=== PATIENT | male | born 1940 | race Caucasian/White ===

== ENCOUNTER 2017-06-09 10:40 | Outpatient (CLI) | payer OTHER, MEDICAID ==
[2017-06-09 11:24] LABS: BASOPHILS % (AUTO) 0.4 % (0.0-2.0); EOSINOPHILS # (AUTO) 0.6 K/uL (0.0-0.4); EOSINOPHILS % (AUTO) 7.9 % (0.0-4.0); HEMOGLOBIN 11.8 g/dL (14.0-18.0); LYMPHOCYTES # (AUTO) 2.2 K/uL (1.0-5.5); LYMPHOCYTES % (AUTO) 27.6 % (20.5-51.5); MEAN CORPUSCULAR HEMOGLOBIN 25 pg (27-31); MEAN CORPUSCULAR HGB CONC 32 % (32-36); MEAN CORPUSCULAR VOLUME 77 fL (79.0-98.0); MONOCYTES # (AUTO) 0.8 K/uL (0.0-1.0); MONOCYTES % (AUTO) 10.2 % (1.7-9.3); NEUTROPHILS # (AUTO) 4.3 K/uL (1.8-7.7); NEUTROPHILS % (AUTO) 53.9 % (40.0-70.0); PLATELET COUNT (AUTO) 281 K/uL (130-430); RED BLOOD CELL COUNT(AUTO) 4.82 MIL/uL (4.2-6.2); RED CELL DISTRIBUTION WIDTH 15.5 % (9.0-15.0); WHITE BLOOD COUNT (AUTO) 7.9 K/uL (4.8-10.8)
[2017-06-09 11:29] LABS: ANION GAP 6 (5-15); CALCIUM 8.8 mg/dL (8.4-11.0); CHLORIDE 103 mmol/L (98-107); CREATININE 1.27 mg/dL (0.55-1.30); GLUCOSE 208 mg/dL (70-99); POTASSIUM 4.5 mmol/L (3.5-5.1); SODIUM SERUM 136 mmol/L (136-145); UREA NITROGEN, BLOOD 24 mg/dL (8-21)
[2017-06-09 11:33] LABS: PROTHROMBIN TIME 9.7 SECS (9.5-12.5)
[2017-06-09 12:21] LABS: BILIRUBIN,URINE NEGATIVE (NEGATIVE); BLOOD, URINE NEGATIVE (NEGATIVE); CLARITY/URINE CLEAR (CLEAR); COLOR,URINE YELLOW (YELLOW); GLUCOSE,URINE NEGATIVE (NEGATIVE); KETONES,URINE NEGATIVE (NEGATIVE); LEUKOCYTE ESTERASE ,URINE NEGATIVE (NEGATIVE); NITRITE, URINE NEGATIVE (NEGATIVE); PH,URINE 5.5 (5.0-8.0); PROTEIN URINE TRACE (NEGATIVE); UROBILINOGEN,URINE 0.2 (0.2-1.0)
== END 2017-06-09 19:21 | disposition home or self-care (01) ==
LOC: SLB 10:40
PROVIDERS: ATTEND Specialist
DX: Z01.812 Encounter for preprocedural laboratory examination (principal); Z01.810 Encounter for preprocedural cardiovascular examination; Z01.818 Encounter for other preprocedural examination; N39.41 Urge incontinence; I70.0 Atherosclerosis of aorta; I45.2 Bifascicular block; R05 Cough
CPT/HCPCS: 36415; 71046-TC; 80048; 81003; 85025; 85610-TC; 85730-TC; 87086; 93005

== ENCOUNTER 2018-12-01 12:08 | Inpatient (IN) | payer OTHER, MEDICAID ==
[~2018-12-01] VITALS: Ht 177.8 cm; Wt 118.9 kg
[~2018-12-01 12:08] MED LIST: ASPI-1153 PO; BENZ-16 PO; CARV12.548 PO; CAT.1 PO; DOCU-144 PO; FURO-150 PO; GABA-531 PO; HYDR-1189 PO; HYDR-4037 PO; INSU500I SQ; LIP10 PO; LISI40TA4 PO; MAGN400T10 PO; METF-510 PO; POTA10TA15 PO; PRO40 PO; TAMS-11 PO
--- NOTE | 2018-12-01 12:45 | NUR ---
Direct admit note Direct admit from the office of DR. Ambriz with a diagnosis of CHF via wheelchair , alert oriented reason for hospitalization i dnt feel good but denies any pain , vitals sign within normal limits , oriented to room , safety/fall precaution initiated verbalized understanding.
[2018-12-01 13:05] VITALS: BP_SYST 129
[2018-12-01] MEDS ORDERED: MOM PO (13:36)
[2018-12-01] MEDS ORDERED: ARIPIPRAZOLE PO (13:36)
[2018-12-01] MEDS ORDERED: TRAMADOL PO (13:36)
[2018-12-01] MEDS ORDERED: FLUTICASONE NS (13:36)
[2018-12-01] MEDS ORDERED: HUMULIN R SUBCUT (13:36)
[2018-12-01] MEDS ORDERED: SUDOGEST PO (13:36)
[2018-12-01] MEDS ORDERED: CEPH-568 PO (13:37)
--- NOTE | 2018-12-01 13:55 | NUR ---
IV PLACEMENT: # 22 gauge angiocath placed to LEFT HAND . Use of asceptic technique. Opsite placed over site. Blood return noted. Flushed with 10 cc of normal saline. No evidence of infiltration noted. Patient tolerated WELL.
[2018-12-01] MEDS ORDERED: FUROSEMIDE 40 MG/4 ML VIAL IVP ONE (14:00)
[2018-12-01 14:13] LABS: HEMATOCRIT 37.2 % (36-54); MONOCYTES # (AUTO) 0.6 K/uL (0.0-1.0); MONOCYTES % (AUTO) 10.5 % (1.7-9.3)
[2018-12-01] MEDS: NORMAL SALINE 5 ML DISP.SYRIN IVF SCH ×2 (14:14→20:46)
[2018-12-01 14:23] LABS: BASOPHILS % (AUTO) 0.2 % (0.0-2.0); EOSINOPHILS # (AUTO) 0.4 K/uL (0.0-0.4); EOSINOPHILS % (AUTO) 6.7 % (0.0-4.0); HEMOGLOBIN 11.3 g/dL (14.0-18.0); LYMPHOCYTES # (AUTO) 1.7 K/uL (1.0-5.5); LYMPHOCYTES % (AUTO) 29.1 % (20.5-51.5); MEAN CORPUSCULAR HEMOGLOBIN 23 pg (27-31); MEAN CORPUSCULAR HGB CONC 31 % (32-36); MEAN CORPUSCULAR VOLUME 77 fL (79.0-98.0); NEUTROPHILS # (AUTO) 3.2 K/uL (1.8-7.7); NEUTROPHILS % (AUTO) 53.5 % (40.0-70.0); PLATELET COUNT (AUTO) 293 K/uL (130-430); RED BLOOD CELL COUNT(AUTO) 4.84 MIL/uL (4.2-6.2); RED CELL DISTRIBUTION WIDTH 16.3 % (9.0-15.0)
[2018-12-01 14:26] LABS: ALANINE AMINOTRANSFERASE 18 U/L (12-78); ALBUMIN 2.9 g/dL (3.4-4.8); ASPARTATE AMINOTRANSFERASE 14 U/L (10-37); CALCIUM 8.9 mg/dL (8.4-11.0); CHLORIDE 104 mmol/L (98-107); CREATININE 1.28 mg/dL (0.55-1.30); GLUCOSE 181 mg/dL (70-99); POTASSIUM 4.4 mmol/L (3.5-5.1); SODIUM SERUM 139 mmol/L (136-145); TOTAL BILIRUBIN 0.2 mg/dL (0.0-1.0); UREA NITROGEN, BLOOD 18 mg/dL (8-21)
[2018-12-01 14:46] LABS: ANION GAP 10 (5-15)
[2018-12-01] MEDS ORDERED: HYDROcodone/ACETAMIN 5-325 MG TAB (NORCO/ VICODIN) PO PRN (15:30)
[2018-12-01] MEDS ORDERED: hydrALAZINE HCL 10 MG TABLET PO PRN (15:30)
[2018-12-01] MEDS ORDERED: BENZONATATE 100 MG CAPSULE (TESSALON) PO PRN (15:30)
[2018-12-01] MEDS ORDERED: MILK OF MAGNESIA 30 ML UDC PO PRN (15:30)
[2018-12-01] MEDS ORDERED: cloNIDine HCL 0.1 MG TABLET PO PRN (15:30)
[2018-12-01] MEDS ORDERED: DOCUSATE SODIUM 250 MG CAPSULE PO PRN (15:45)
[2018-12-01] MEDS ORDERED: traMADol HCL HCL 50 MG TABLET (ULTRAM) PO PRN (16:00)
[2018-12-01] MEDS ORDERED: D5W 1,000 ML IV PRN (16:45)
[2018-12-01] MEDS ORDERED: GLUCOSE 15 GM GEL (in 37.5 GM TUBE) PO PRN (16:45)
[2018-12-01] MEDS ORDERED: DEXTROSE 50%-WATER 50 ML DISP.SYRIN IVP PRN (16:45)
[2018-12-01] MEDS: metFORMIN HCL 500 MG TABLET PO SCH (17:14)
[2018-12-01] MEDS: INSULIN REGULAR, HUMAN 100 UNITS/ML, 10 ML VIAL (humuLIN R) SUBCUT PRN ×2 (17:15→21:05)
[2018-12-01 17:40] VITALS: BP_SYST 132
--- NOTE | 2018-12-01 18:45 | NUR ---
iv patent heplock pt aox3 able to feed self states pain in back and legs 4/10. no prn meds given. no acute distress noted pt monitoring.
--- NOTE | 2018-12-01 19:15 | NUR ---
OPENING NOTE Bedside report received from dayshift nurse. Patient received lying in bed, awake, watching TV, no s/s of acute distress noted. Breathing even and unlabored. HOB raised. IV site patent, no signs of infiltration or infection noted. Patient denies pain at this time. Call light with patient. Bed is locked and at lowest position. Will continue to monitor.
[2018-12-01 20:00] VITALS: BP_SYST 160
[2018-12-01] MEDS: CARVEDILOL 12.5 MG TABLET (COREG) PO SCH (20:44)
[2018-12-01] MEDS: ATORVASTATIN 10 MG TABLET PO SCH (20:44)
[2018-12-01] MEDS: GABAPENTIN 300 MG CAPSULE PO SCH (20:44)
[2018-12-01] MEDS: ENOXAPARIN SODIUM 40 MG/0.4 ML SYRINGE SUBCUT SCH (20:45)
[2018-12-01] MEDS: FLUTICASONE PROPIONATE 50 mCg/SPRAY 16 GM NS SCH (20:45)
[2018-12-01] MEDS: FUROSEMIDE 40 MG/4 ML VIAL IVP SCH (20:45)
[2018-12-01] MEDS ORDERED: PSEUDOEPHEDRINE HCL 30 MG TABLET PO PRN (21:00)
--- NOTE | 2018-12-01 21:00 | NUR ---
ROUNDS Patient in bed, sitting on the edge. No signs of discomfort. Chest rise and fall even bilaterally. Call light with patient. Will continue to monitor.
[2018-12-01] MEDS: ARIPiprazole 2 MG TAB PO SCH (21:07)
[2018-12-01] MEDS ORDERED: ARIPiprazole 5 MG TAB ONE (21:15)
--- NOTE | 2018-12-01 23:00 | NUR ---
ROUNDS Patient in bed sleeping at this time. No s/s of acute distress noted. Breathing even and unlabored. Call light with patient. Will continue to monitor.
[2018-12-02 00:32] VITALS: BP_SYST 134
--- NOTE | 2018-12-02 01:00 | NUR ---
ROUNDS Patient asleep. No signs of discomfort noted. Chest rise and fall even bilaterally. Call light with patient.
--- NOTE | 2018-12-02 03:00 | NUR ---
INCONTINENT Patient woke up and he was wet, voided. New gown, clean and dry sheets replaced by RN. All needs met. Call light with patient. Will continue to monitor.
--- NOTE | 2018-12-02 05:00 | NUR ---
ROUNDS Patient in bed asleep. No signs of discomfort noted. Chest rise and fall even bilaterally. Call light with patient. Will continue to monitor.
[2018-12-02] MEDS: INSULIN REGULAR, HUMAN 100 UNITS/ML, 10 ML VIAL (humuLIN R) SUBCUT PRN ×4 (06:08→20:31)
[2018-12-02] MEDS: NORMAL SALINE 5 ML DISP.SYRIN IVF SCH ×3 (06:08→22:00)
--- NOTE | 2018-12-02 06:44 | NUR ---
CLOSING NOTES Patient in bed sleeping at this time. No s/s of acute distress noted. Breathing even and unlabored. IV site patent, no signs of infiltration or infection noted. Skin warm and dry to touch, no s/s of hypoglycemia noted. All needs met throughout shift. Fall and safety precautions maintained throughout shift. Will continue to monitor until patient care is endorsed to oncoming dayshift nurse.
--- NOTE | 2018-12-02 07:45 | NUR ---
HOB raised. IV site patent, no signs of infiltration or infection noted. Instructed patient southeast regional sales manager light, which is with patient, with return demo. Bed is locked and at lowest position. Will continue to monitor.
[2018-12-02 08:00] VITALS: BP_SYST 143
[2018-12-02] MEDS: GABAPENTIN 300 MG CAPSULE PO SCH ×2 (08:58→20:30)
[2018-12-02] MEDS: PANTOPRAZOLE SODIUM 40 MG TAB PO SCH (08:59)
[2018-12-02] MEDS: MAGNESIUM OXIDE 400 MG TABLET PO SCH (08:59)
[2018-12-02] MEDS: TAMSULOSIN HCL 0.4 MG CAP PO SCH (08:59)
[2018-12-02] MEDS: metFORMIN HCL 500 MG TABLET PO SCH ×2 (08:59→17:55)
[2018-12-02] MEDS: CARVEDILOL 12.5 MG TABLET (COREG) PO SCH ×2 (08:59→20:30)
[2018-12-02] MEDS: POTASSIUM CHLORIDE 10 MEQ TAB.PRT.SR PO SCH (08:59)
[2018-12-02] MEDS: ASPIRIN 81 MG TABLET(ECOTRIN) PO SCH (08:59)
[2018-12-02] MEDS: LISINOPRIL 20 MG TABLET PO SCH (09:00)
[2018-12-02] MEDS: FUROSEMIDE 40 MG/4 ML VIAL IVP SCH ×2 (09:00→20:29)
[2018-12-02] MEDS: FLUTICASONE PROPIONATE 50 mCg/SPRAY 16 GM NS SCH ×2 (10:15→20:32)
--- NOTE | 2018-12-02 10:21 | NUR ---
Nutrition Update Jake Scale 17 noted. Pt admitted for CHF. Diet: [facility] BMI: 39.7 kg/m2 RD to follow per nutrition care standards.
--- NOTE | 2018-12-02 11:30 | NUR ---
PATIENT IS AT REST, NO SIGNS OF DISTRESS NOTED.
--- NOTE | 2018-12-02 11:40 | NUR ---
BLOOD SUGAR 273, RI WILL BE GIVEN PER SLIDING SCALE.
[2018-12-02 12:00] VITALS: BP_SYST 153
--- NOTE | 2018-12-02 13:00 | NUR ---
PATIENT FINISHES LUNCH WITHOUT DISTRESS.
--- NOTE | 2018-12-02 15:00 | NUR ---
PATIENT IS WATCHING TV, NO SIGNS OF DISTRESS NOTED.
[2018-12-02 16:00] VITALS: BP_SYST 139
--- NOTE | 2018-12-02 17:00 | NUR ---
PATIENT BLOOD SUGAR 238. 4 UNITS OF RI WILL BE GIVEN.
--- NOTE | 2018-12-02 18:58 | NUR ---
PATIENT FINISHES DINNER WITHOUT DISTRESS.
--- NOTE | 2018-12-02 19:05 | NUR ---
OPENING NOTE Bedside report received from dayshift nurse. Patient received sitting up in bed, no s/s of acute distress noted. Breathing even and unlabored. Patient denies any pain or discomfort at this time. Call light with patient. Bed is locked and at lowest position. Will continue to monitor.
[2018-12-02 20:00] VITALS: BP_SYST 139
[2018-12-02] MEDS: ATORVASTATIN 10 MG TABLET PO SCH (20:29)
[2018-12-02] MEDS: ARIPiprazole 2 MG TAB PO SCH (20:30)
[2018-12-02] MEDS: ENOXAPARIN SODIUM 40 MG/0.4 ML SYRINGE SUBCUT SCH (20:30)
--- NOTE | 2018-12-02 21:00 | NUR ---
ROUNDS Patient in bed resting, no signs of discomfort noted. Patient denies pain. Chest rise and fall even bilaterally. Call light with patient. Will continue to monitor.
--- NOTE | 2018-12-02 23:00 | NUR ---
ROUNDS Patient sleeping at this time. No s/s of acute distress noted. Breathing even and unlabored. Call light with patient. Will continue to monitor.
[2018-12-03 00:36] VITALS: BP_SYST 149
--- NOTE | 2018-12-03 01:00 | NUR ---
ROUNDS Patient in bed asleep. No signs of discomfort noted. Chest rise and fall even bilaterally. Call light with patient. Will continue to monitor.
--- NOTE | 2018-12-03 03:00 | NUR ---
ROUNDS Patient sleeping comfortably. No s/s of acute distress noted. Breathing even and unlabored. Call light with patient. Will continue to monitor.
--- NOTE | 2018-12-03 05:00 | NUR ---
SKINCARE Skin care done at this time by SUPERINTENDENT TERMINAL and RN. Gown, sheets, and blankets changed at this time. Patient in bed, tolerated activity well. No signs of discomfort noted. Chest rise and fall even bilaterally. All needs met. Call light with patient. Will continue to monitor.
[2018-12-03] MEDS: NORMAL SALINE 5 ML DISP.SYRIN IVF SCH ×3 (06:00→20:26)
[2018-12-03] MEDS: INSULIN REGULAR, HUMAN 100 UNITS/ML, 10 ML VIAL (humuLIN R) SUBCUT PRN ×4 (06:01→20:25)
--- NOTE | 2018-12-03 07:35 | NUR ---
INITIAL NOTE RECEIVED PT IN BED, NO S/S OF DISTRESS OR SOB NOTED, PT HAS NO C/O PAIN AT THIS TIME, PT IN STABLE CONDITION, PT AAOX4, VERBAL. PT HAS AN IV CATHETER PATENT, SALINE LOCK, NO SIGNS OF INFECTION OR INFILTRATION NOTED. FALL, SAFETY AND ASPIRATION PRECAUTIONS IN PLACE. BED AT LOWEST POSITION, CALL LIGHT WITHIN REACH, WILL CONTINUE TO MONITOR PT FOR ANY CHANGES.
[2018-12-03 08:40] VITALS: BP_SYST 144
[2018-12-03] MEDS: ASPIRIN 81 MG TABLET(ECOTRIN) PO SCH (08:48)
[2018-12-03] MEDS: MAGNESIUM OXIDE 400 MG TABLET PO SCH (08:48)
[2018-12-03] MEDS: TAMSULOSIN HCL 0.4 MG CAP PO SCH (08:48)
[2018-12-03] MEDS: PANTOPRAZOLE SODIUM 40 MG TAB PO SCH (08:48)
[2018-12-03] MEDS: metFORMIN HCL 500 MG TABLET PO SCH ×2 (08:48→17:13)
[2018-12-03] MEDS: POTASSIUM CHLORIDE 10 MEQ TAB.PRT.SR PO SCH (08:48)
[2018-12-03] MEDS: GABAPENTIN 300 MG CAPSULE PO SCH ×2 (08:48→20:24)
[2018-12-03] MEDS: FUROSEMIDE 40 MG/4 ML VIAL IVP SCH ×2 (08:49→20:23)
[2018-12-03] MEDS: LISINOPRIL 20 MG TABLET PO SCH (08:49)
[2018-12-03] MEDS: CARVEDILOL 12.5 MG TABLET (COREG) PO SCH ×2 (08:53→20:24)
[2018-12-03] MEDS: FLUTICASONE PROPIONATE 50 mCg/SPRAY 16 GM NS SCH ×2 (09:01→20:22)
--- NOTE | 2018-12-03 10:15 | NUR ---
ROUNDS PT SITTING UP IN BED, NO S/S OF DISTRESS OR SOB NOTED, PT HAS NO C/O PAIN, PT IN STABLE CONDITION, WILL CONTINUE TO MONITOR PT FOR ANY CHANGES.
[2018-12-03 11:48] VITALS: BP_SYST 120
--- NOTE | 2018-12-03 12:51 | NUR ---
ROUNDS PT SITTING UP IN BED EATING LUNCH, NO S/S OF DISTRESS OR SOB NOTED, PT HAS NO C/O PAIN, PT IN STABLE CONDITION, WILL CONTINUE TO MONITOR PT FOR ANY CHANGES.
--- NOTE | 2018-12-03 14:55 | NUR ---
ROUNDS PT IN BED, NO S/S DISTRESS OR SOB NOTED, PT HAS NO C/O PAIN AT THIS TIME, PT IN STABLE CONDITION, PT WATCHING TV, WILL CONTINUE TO MONITOR PT FOR ANY CHANGES.
[2018-12-03 16:20] VITALS: BP_SYST 143
--- NOTE | 2018-12-03 19:10 | NUR ---
OPENING NOTES Bedside report received from dayshift nurse. Patient received sitting at edge of bed. No s/s of acute distress noted. Patient denies any pain. Breathing even and unlabored. IV site patent, no signs of infiltration or infection noted. Call light with patient. Bed is locked and at lowest position. Will continue to monitor.
[2018-12-03 20:00] VITALS: BP_SYST 138
[2018-12-03] MEDS: ARIPiprazole 2 MG TAB PO SCH (20:23)
[2018-12-03] MEDS: ATORVASTATIN 10 MG TABLET PO SCH (20:24)
[2018-12-03] MEDS: ENOXAPARIN SODIUM 40 MG/0.4 ML SYRINGE SUBCUT SCH (20:24)
--- NOTE | 2018-12-03 21:00 | NUR ---
ROUNDS Patient in bed resting. No signs of discomfort noted. Chest rise and fall even bilaterally. Call light with patient. Will continue to monitor.
--- NOTE | 2018-12-03 21:30 | NUR ---
CTSCAN Patient brought back to unit from CT scan. Protonix drip infusing at this time, IV site patent. No signs of discomfort, chest rise and fall even bilaterally. Call light with patient. Will continue to monitor. Addendum: 12/03/18 at 2259 by Hai Valencia RN INPUT WRONG PATIENT
--- NOTE | 2018-12-03 23:00 | NUR ---
INCONTINENT CARE Patient voided on the bed. Incontinent care done by COMMUNICATIONS COORDINATOR and RN. Patient tolerated well. All needs met. Call light with patient.
[2018-12-04 00:41] VITALS: BP_SYST 144
--- NOTE | 2018-12-04 01:00 | NUR ---
ROUNDS Patient in bed sleeping. No signs of discomfort noted. Chest rise and fall even bilaterally. Call light with patient. Will continue to monitor.
--- NOTE | 2018-12-04 03:00 | NUR ---
ROUNDS Patient in bed sleeping. No s/s of acute distress noted. Breathing even and unlabored. Call light with patient. Will continue monitor.
--- NOTE | 2018-12-04 05:00 | NUR ---
ROUNDS Patient sleeping at this time. No signs of discomfort noted. Chest rise and fall even bilaterally. Call light with patient. Will continue to monitor.
[2018-12-04] MEDS: NORMAL SALINE 5 ML DISP.SYRIN IVF SCH ×3 (06:03→22:33)
[2018-12-04] MEDS: INSULIN REGULAR, HUMAN 100 UNITS/ML, 10 ML VIAL (humuLIN R) SUBCUT PRN ×4 (06:04→22:38)
--- NOTE | 2018-12-04 06:25 | NUR ---
CLOSING NOTES Patient in bed asleep at this time. No s/s of acute distress noted. Breathing even and unlabored. IV site patent, no signs of infiltration or infection noted. Skin warm and dry to touch, no s/s of hypoglycemia. All needs met throughout shift. Fall and safety precautions maintained throughout shift. Will continue to monitor until patient care is endorsed to oncoming dayshift nurse.
--- NOTE | 2018-12-04 07:25 | NUR ---
Opening Note: Patient in bed asleep. Patient shows no signs of pain or discomfort. Breathing is even and unlabored with no distress noted. IV patent and intact. Safety precautions in place; bed in lowest position, wheels locked, side rails x3, bed alarm activated and call light within reach. Will continue to monitor.
[2018-12-04 08:06] VITALS: BP_SYST 133
[2018-12-04] MEDS: ASPIRIN 81 MG TABLET(ECOTRIN) PO SCH (08:43)
[2018-12-04] MEDS: TAMSULOSIN HCL 0.4 MG CAP PO SCH (08:43)
[2018-12-04] MEDS: metFORMIN HCL 500 MG TABLET PO SCH ×2 (08:43→17:16)
[2018-12-04] MEDS: MAGNESIUM OXIDE 400 MG TABLET PO SCH (08:43)
[2018-12-04] MEDS: GABAPENTIN 300 MG CAPSULE PO SCH ×2 (08:43→22:28)
[2018-12-04] MEDS: PANTOPRAZOLE SODIUM 40 MG TAB PO SCH (08:43)
[2018-12-04] MEDS: POTASSIUM CHLORIDE 10 MEQ TAB.PRT.SR PO SCH (08:43)
[2018-12-04] MEDS: FUROSEMIDE 40 MG/4 ML VIAL IVP SCH ×3 (08:44→22:28)
[2018-12-04] MEDS: CARVEDILOL 12.5 MG TABLET (COREG) PO SCH ×2 (08:44→22:29)
[2018-12-04] MEDS: LISINOPRIL 20 MG TABLET PO SCH (08:44)
[2018-12-04] MEDS: FLUTICASONE PROPIONATE 50 mCg/SPRAY 16 GM NS SCH ×2 (08:45→22:28)
--- NOTE | 2018-12-04 10:09 | NUR ---
Rounds: Patient in bed resting, no distress noted. Will continue to monitor.
--- NOTE | 2018-12-04 11:26 | NUR ---
Discharge Planning: [facility] faxed pt referral to [facility] (f [phone] p [phone]) Pat came to evaluate accepting patient. Requesting PT notes, PT is aware. Patient accepted to Room 1101A. Addendum: 12/04/18 at 1557 by Juliann Oquendo DP [facility] (f [phone] p [phone]) Rm 1101A, [facility] ([phone]) 7:30pm P/U Nurse made aware, patient packet taken to nurse station.
--- NOTE | 2018-12-04 11:31 | NUR ---
Accucheck: Blood sugar 373, covered with 10 units insulin per sliding scale, see eMAR.
--- NOTE | 2018-12-04 12:01 | NUR ---
Rounds: Patient in bed resting. Patient shows no signs of pain or discomfort. Breathing is even and unlabored with no distress noted. Morning medications tolerated well. Safety precautions in place; bed in lowest position, wheels locked, side rails x3, bed alarm activated and call light within reach. No needs at this time. Will continue to monitor.
[2018-12-04 12:35] VITALS: BP_SYST 127
--- NOTE | 2018-12-04 14:01 | NUR ---
Rounds: Patient in bed resting, no distress noted. Will continue to monitor.
--- NOTE | 2018-12-04 15:55 | NUR ---
Rounds: Patient in bed resting. Patient shows no signs of pain or discomfort. Breathing is even and unlabored with no distress noted. Safety precautions in place; bed in lowest position, wheels locked, side rails x3, bed alarm activated and call light within reach. No needs at this time. Will continue to monitor.
--- NOTE | 2018-12-04 16:14 | NUR ---
DC PLANNING: CM CONTACTED PATIENT'S DAUGHTER (ASHLEY) AND INFORMED HER OF THE DISCHARGE TO [facility] TODAY AT 7:30PM. PATIENT'S DAUGHTER AGREED TO THE DISCHARGE.
[2018-12-04 16:39] VITALS: BP_SYST 123
--- NOTE | 2018-12-04 17:20 | NUR ---
Accucheck: Blood sugar 326, covered with 8 units insulin per sliding scale, see eMAR.
--- NOTE | 2018-12-04 18:13 | NUR ---
Called Family: Called daughter Lucie and left a voicemail with a callback number.
--- NOTE | 2018-12-04 18:20 | NUR ---
Called Report: Called [facility] and gave report to Angie, all questions answered and call back number given.
[2018-12-04 18:23] VITALS: BP_SYST 123
--- NOTE | 2018-12-04 19:07 | NUR ---
Closing Note: Patient in bed resting. Patient shows no signs of pain or discomfort. Breathing is even and unlabored with no distress noted. IV patent and intact. Safety precautions in place; bed in lowest position, wheels locked, side rails x3, bed alarm activated and call light within reach. All needs met. Will endorse plan of care to NOC, nurse.
--- NOTE | 2018-12-04 19:25 | NUR ---
OPENING NOTE RECEIVED CARE OF PT. PT IS AAOX4, NO S/S OF ACUTE DISTRESS, BREATHING IS UNLABORED TO ROOM AIR. IV TO LEFT HAND IS SALINE LOCKED. POC EXPLAINED TO PT, PT VERBALIZED UNDERSTANDING. SAFETY PRECAUTIONS ARE IN PLACE: BED IS LOCKED IN LOWEST POSITION, SIDE RAILS UP X2, CALL LIGHT WITH PT, BED ALARM ON.
[2018-12-04 20:00] VITALS: BP_SYST 130
--- NOTE | 2018-12-04 22:15 | NUR ---
Kelvin from [facility] called stating that it is now too late to accept the patient because pharmacy is not available and pharmacy is needed for the admission process. Informed Kelvin that we can give the patient his night meds before he goes. Kelvin said patient can be transferred in the morning and bed will still be held. Informed him that I will be calling Dr. Ambriz to inform him.
[2018-12-04] MEDS: ARIPiprazole 2 MG TAB PO SCH (22:27)
[2018-12-04] MEDS: ATORVASTATIN 10 MG TABLET PO SCH (22:28)
--- NOTE | 2018-12-04 22:29 | NUR ---
SCHEDULED MEDICATION PASS DUE MEDS GIVEN. NO S/S OF DISTRESS. WILL MONITOR.
--- NOTE | 2018-12-04 22:30 | NUR ---
Spoke to Dr. Ambriz. Informed him that [facility] is refusing to accept the patient tonight because it is too late. Informed Dr. Ambriz that I spoke to Kelvin. Dr. Ambriz will call [facility].
[2018-12-04] MEDS: ENOXAPARIN SODIUM 40 MG/0.4 ML SYRINGE SUBCUT SCH (22:32)
--- NOTE | 2018-12-04 22:38 | NUR ---
REFUSED LASIX PT REFUSED LASIX STATING "IT MAKES ME PEE TOO MUCH". PT EDUCATED REGARDING MEDICATION INDICATION AND ACTION. PT CONTINUED TO REFUSE. MEDICATION WASTED. WILL MONITOR.
--- NOTE | 2018-12-04 22:39 | NUR ---
Dr. Ambriz called back. He said that the latest the patient can arrive at [facility] is at midnight. If patient is not picked up by 23:00, cancel transfer, enter new discharge order for tomorrow and set up transfer first thing in the morning for 07:00am. Omar Peters made aware of situation. Will notify primary RN.
--- NOTE | 2018-12-04 23:00 | NUR ---
DISCHARGED PT DISCHARGED WITH [facility]ULANCE [facility]IST[facility] TO [facility]. DISCHARGE INSTRUCTIONS GIVEN TO PT, PT VERBALIZED UNDERSTANDING. IV TO LEFT HAND IS SALINE LOCKED AND LEFT IN PLACE. PT'S VITAL SIGNS ARE STABLE. PT DENIES PAIN OR DISCOMFORT. NO S/S OF ACUTE DISTRESS. PT TAKEN TO AMBULANCE VIA GURNEY.
== END 2018-12-04 23:00 | DRG 551 ==
LOC: STU 12:28
PROVIDERS: ADMIT Family Medicine; ATTEND Family Medicine
DX: M54.16 Radiculopathy, lumbar region (principal); I50.33 Acute on chronic diastolic (congestive) heart failure; I11.0 Hypertensive heart disease with heart failure; R29.6 Repeated falls; I10 Essential (primary) hypertension; E11.40 Type 2 diabetes mellitus with diabetic neuropathy, unspecified
CPT/HCPCS: 36415; 71045; 80053; 82962; 83880; 85025; G0378; J1650; J1815; J1940

== ENCOUNTER 2020-08-24 01:21 | Inpatient (IN) | payer OTHER, MEDICAID, SELFPAY ==
[2020-08-24] VITALS (15 sets, daily range): BP systolic 95–160
[~2020-08-24] VITALS: Ht 177.8 cm; Wt 122.5 kg
[~2020-08-24 01:21] MED LIST changes: +ARIPIPRAZOLE PO; -ASPI-1153 PO; +ASPI-1393 PO; +CEPH-568 PO; +FLUTICASONE NS; +HUMULIN R SUBCUT; -HYDR-1189 PO; +HYDR-3919 PO; +LISI40TA13 PO; -LISI40TA4 PO; -METF-510 PO; +METF-518 PO; +MOM PO; +SUDOGEST PO; +TRAMADOL PO
[2020-08-24] MEDS ORDERED: DEXTROSE 50% JECT 50 ML DISP.SYRIN ONE (01:29)
[2020-08-24] MEDS ORDERED: METOCLOPRAMIDE HCL 10 MG/2 ML VIAL ONE (01:39)
[2020-08-24] MEDS ORDERED: METOCLOPRAMIDE HCL 10 MG/2 ML VIAL IVP ONE (01:45)
[2020-08-24] MEDS ORDERED: DEXTROSE 50% JECT 50 ML DISP.SYRIN IVP ONE (01:45)
[2020-08-24] MEDS ORDERED: NACL 0.9% 1,000 ML IV ONE (01:45)
[2020-08-24 01:58] LABS: ANION GAP 9 (5-15); CALCIUM 8.1 mg/dL (8.4-11.0); CHLORIDE 107 mmol/L (98-107); CREATININE 1.41 mg/dL (0.55-1.30); POTASSIUM 3.6 mmol/L (3.5-5.1); SODIUM SERUM 142 mmol/L (136-145); UREA NITROGEN, BLOOD 28 mg/dL (8-21)
[2020-08-24 01:59] LABS: BASOPHILS # (AUTO) 0.1 K/uL (0.0-0.2); BASOPHILS % (AUTO) 0.7 % (0.0-2.0); EOSINOPHILS # (AUTO) 0.2 K/uL (0.0-0.4); EOSINOPHILS % (AUTO) 1.5 % (0.0-4.0); HEMATOCRIT 37.8 % (36-54); HEMOGLOBIN 11.9 g/dL (14.0-18.0); LYMPHOCYTES # (AUTO) 3.4 K/uL (1.0-5.5); LYMPHOCYTES % (AUTO) 32.4 % (20.5-51.5); MEAN CORPUSCULAR HEMOGLOBIN 25 pg (27-31); MEAN CORPUSCULAR HGB CONC 32 % (32-36); MEAN CORPUSCULAR VOLUME 79 fL (79.0-98.0); MONOCYTES # (AUTO) 1.5 K/uL (0.0-1.0); MONOCYTES % (AUTO) 14.7 % (1.7-9.3); NEUTROPHILS # (AUTO) 5.3 K/uL (1.8-7.7); NEUTROPHILS % (AUTO) 50.7 % (40.0-70.0); PLATELET COUNT (AUTO) 262 K/uL (130-430); RED BLOOD CELL COUNT(AUTO) 4.77 MIL/uL (4.2-6.2); RED CELL DISTRIBUTION WIDTH 15.9 % (9.0-15.0); WHITE BLOOD COUNT (AUTO) 10.5 K/uL (4.8-10.8)
[2020-08-24 02:05] LABS: ALANINE AMINOTRANSFERASE 29 U/L (12-78); ALBUMIN 2.8 g/dL (3.4-4.8); ASPARTATE AMINOTRANSFERASE 24 U/L (10-37); TOTAL BILIRUBIN 0.2 mg/dL (0.0-1.0)
[2020-08-24 02:09] LABS: GLUCOSE 35 mg/dL (70-99)
[2020-08-24] MEDS ORDERED: NS 500 ML IV ONE (02:15)
[2020-08-24] MEDS ORDERED: PSEU1TAB PO (02:34)
[2020-08-24] MEDS ORDERED: ARIP2TAB3 PO (02:34)
[2020-08-24] MEDS ORDERED: NALO4SPR NS (02:34)
[2020-08-24] MEDS ORDERED: MYCOLOG15O TP (02:34)
[2020-08-24] MEDS ORDERED: FERROUS SULFATE PO (02:34)
[2020-08-24] MEDS ORDERED: CYM30 PO (02:34)
[2020-08-24] MEDS ORDERED: CYAN100010 PO (02:34)
[2020-08-24] MEDS ORDERED: MICO71PO TP (02:34)
[2020-08-24 02:47] LABS: BILIRUBIN,URINE NEGATIVE (NEGATIVE); BLOOD, URINE 1+ (NEGATIVE); COLOR,URINE YELLOW (YELLOW); GLUCOSE,URINE TRACE (NEGATIVE); KETONES,URINE NEGATIVE (NEGATIVE); LEUKOCYTE ESTERASE ,URINE NEGATIVE (NEGATIVE); NITRITE, URINE NEGATIVE (NEGATIVE); PH,URINE 6.5 (5.0-8.0); PROTEIN URINE 3+ (NEGATIVE)
[2020-08-24 02:54] LABS: CLARITY/URINE SLIGHTLY CLOUDY (CLEAR)
[2020-08-24 02:59] LABS: BACTERIA,URINE FEW /HPF (None Seen); WBC,URINE 0-3 /HPF (0-3)
[2020-08-24] MEDS ORDERED: ONDANSETRON HCL 4 MG/2 ML VIAL IVP ONE (04:30)
[2020-08-24] MEDS ORDERED: MORPHINE 4 MG INJ. 4 MG/ML VIAL IVP ONE (04:30)
[2020-08-24] MEDS ORDERED: D10W 1,000 ML IV SCH ×3 (05:00→05:45)
[2020-08-24] MEDS ORDERED: HYDROcodone/ACETAMIN 5-325 MG TAB (NORCO/ VICODIN) ONE (07:45)
[2020-08-24] MEDS: HYDROcodone/ACETAMIN 5-325 MG TAB (NORCO/ VICODIN) PO PRN (07:45)
[2020-08-24] MEDS: GABAPENTIN 300 MG CAPSULE PO SCH ×4 (07:45→20:33)
[2020-08-24] MEDS ORDERED: GABAPENTIN 300 MG CAPSULE ONE (07:46)
[2020-08-24] MEDS ORDERED: HYDROmorphone 1 INJ. 1 MG/ML CARTRIDGE ONE (09:26)
[2020-08-24] MEDS ORDERED: cloNIDine HCL 0.1 MG TABLET PO PRN (09:30)
[2020-08-24] MEDS ORDERED: POTASSIUM CHLORIDE 10 MEQ TAB.PRT.SR PO ONE (09:30)
[2020-08-24] MEDS ORDERED: NALOXONE HCL 0.4 MG/ML AMP (NARCAN) IVP PRN (09:30)
[2020-08-24] MEDS: NYSTATIN/TRIAMCIN 15 GM TOPICAL OINTMENT TP SCH ×2 (09:30→20:47)
[2020-08-24] MEDS ORDERED: HYDROcodone/ACETAMIN 5-325 MG TAB (NORCO/ VICODIN) PO PRN (09:30)
[2020-08-24] MEDS ORDERED: MAGNESIUM OXIDE 400 MG TABLET PO ONE (09:30)
[2020-08-24] MEDS ORDERED: MILK OF MAGNESIA 30 ML UDC PO PRN (09:30)
[2020-08-24] MEDS ORDERED: PANTOPRAZOLE SODIUM 40 MG TAB PO ONE (09:30)
[2020-08-24] MEDS ORDERED: TAMSULOSIN HCL 0.4 MG CAP PO ONE (09:30)
[2020-08-24] MEDS ORDERED: DOCUSATE SODIUM 100 MG CAPSULE PO PRN (09:30)
[2020-08-24] MEDS ORDERED: GABAPENTIN 300 MG CAPSULE PO SCH (09:30)
[2020-08-24] MEDS ORDERED: BENZONATATE 100 MG CAPSULE (TESSALON) PO PRN (09:30)
[2020-08-24] MEDS ORDERED: FUROSEMIDE 20 MG TABLET PO ONE (10:00)
[2020-08-24] MEDS ORDERED: CARVEDILOL 12.5 MG TABLET (COREG) PO ONE (10:00)
[2020-08-24] MEDS ORDERED: DULoxetine HCL 30 MG CAPSULE.DR (CYMBALTA) PO ONE (10:00)
[2020-08-24] MEDS ORDERED: ASPIRIN 81 MG TABLET(ECOTRIN) PO ONE (10:00)
[2020-08-24] MEDS: CYANOCOBALAMIN 1000 mCg TABLET PO SCH (10:37)
[2020-08-24] MEDS: ARIPiprazole 2 MG TAB PO SCH (10:37)
[2020-08-24] MEDS: HYDROmorphone 1 INJ. 1 MG/ML CARTRIDGE IVP PRN (15:43)
[2020-08-24] MEDS: INSULIN REGULAR, HUMAN 100 UNITS/ML, 10 ML VIAL (humuLIN R) SUBCUT PRN ×3 (15:44→20:56)
[2020-08-24] MEDS: 0.45% NACL 1,000 ML IV SCH (17:47)
[2020-08-24] MEDS: DULoxetine HCL 30 MG CAPSULE.DR (CYMBALTA) PO SCH (20:33)
[2020-08-24] MEDS: CARVEDILOL 12.5 MG TABLET (COREG) PO SCH (20:33)
[2020-08-24] MEDS: ATORVASTATIN 10 MG TABLET PO SCH (20:34)
[2020-08-24] MEDS: ENOXAPARIN SODIUM 40 MG/0.4 ML SYRINGE SUBCUT SCH (20:36)
[2020-08-24] MEDS: CLOTRIMAZOLE 1% TOPICAL CREAM 15 GM TP SCH (20:47)
[2020-08-25] MEDS: HYDROcodone/ACETAMIN 5-325 MG TAB (NORCO/ VICODIN) PO PRN (02:25)
[2020-08-25] MEDS: INSULIN REGULAR, HUMAN 100 UNITS/ML, 10 ML VIAL (humuLIN R) SUBCUT PRN ×4 (06:19→20:43)
[2020-08-25 06:58] LABS: BASOPHILS % (AUTO) 0.6 % (0.0-2.0); EOSINOPHILS # (AUTO) 0.4 K/uL (0.0-0.4); EOSINOPHILS % (AUTO) 6.2 % (0.0-4.0); HEMATOCRIT 38.3 % (36-54); LYMPHOCYTES % (AUTO) 29.4 % (20.5-51.5); MEAN CORPUSCULAR HEMOGLOBIN 25 pg (27-31); MEAN CORPUSCULAR HGB CONC 31 % (32-36); MEAN CORPUSCULAR VOLUME 80 fL (79.0-98.0); MONOCYTES % (AUTO) 14.5 % (1.7-9.3); NEUTROPHILS # (AUTO) 3.3 K/uL (1.8-7.7); NEUTROPHILS % (AUTO) 49.3 % (40.0-70.0); PLATELET COUNT (AUTO) 229 K/uL (130-430); RED BLOOD CELL COUNT(AUTO) 4.81 MIL/uL (4.2-6.2); RED CELL DISTRIBUTION WIDTH 16.1 % (9.0-15.0); WHITE BLOOD COUNT (AUTO) 6.7 K/uL (4.8-10.8)
[2020-08-25 07:37] LABS: ANION GAP 9 (5-15); CALCIUM 7.8 mg/dL (8.4-11.0); CHLORIDE 100 mmol/L (98-107); CREATININE 1.88 mg/dL (0.55-1.30); GLUCOSE 283 mg/dL (70-99); POTASSIUM 4.7 mmol/L (3.5-5.1); SODIUM SERUM 134 mmol/L (136-145); UREA NITROGEN, BLOOD 31 mg/dL (8-21); URIC ACID 6.8 mg/dL (2.4-7.0)
[2020-08-25] MEDS: HYDROmorphone 1 INJ. 1 MG/ML CARTRIDGE IVP PRN (07:45)
[2020-08-25 08:00] VITALS: BP_SYST 119
[2020-08-25] MEDS ORDERED: FUROSEMIDE 20 MG TABLET PO SCH (09:00)
[2020-08-25] MEDS: POTASSIUM CHLORIDE 10 MEQ TAB.PRT.SR PO SCH (09:16)
[2020-08-25] MEDS: ASPIRIN 81 MG TABLET(ECOTRIN) PO SCH (09:16)
[2020-08-25] MEDS: DULoxetine HCL 30 MG CAPSULE.DR (CYMBALTA) PO SCH ×2 (09:16→20:37)
[2020-08-25] MEDS: TAMSULOSIN HCL 0.4 MG CAP PO SCH (09:17)
[2020-08-25] MEDS: FERROUS SULFATE 325 MG TABLET.DR PO SCH (09:17)
[2020-08-25] MEDS: GABAPENTIN 300 MG CAPSULE PO SCH ×3 (09:17→20:37)
[2020-08-25] MEDS: CARVEDILOL 12.5 MG TABLET (COREG) PO SCH ×2 (09:18→20:40)
[2020-08-25] MEDS: MAGNESIUM OXIDE 400 MG TABLET PO SCH (09:20)
[2020-08-25] MEDS: CYANOCOBALAMIN 1000 mCg TABLET PO SCH (09:21)
[2020-08-25] MEDS: BALSAM PERU/CASTOR OIL 60 GM OINT...G. TP SCH (09:21)
[2020-08-25] MEDS: NYSTATIN/TRIAMCIN 15 GM TOPICAL OINTMENT TP SCH ×2 (09:23→20:39)
[2020-08-25] MEDS: PANTOPRAZOLE SODIUM 40 MG TAB PO SCH (09:33)
[2020-08-25] MEDS: CLOTRIMAZOLE 1% TOPICAL CREAM 15 GM TP SCH ×2 (09:33→20:38)
[2020-08-25] MEDS: ARIPiprazole 2 MG TAB PO SCH (09:35)
[2020-08-25 11:26] VITALS: BP_SYST 125
[2020-08-25] MEDS: 0.45% NACL 1,000 ML IV SCH ×2 (12:10→20:25)
[2020-08-25] MEDS ORDERED: MILK OF MAGNESIA 30 ML UDC PO ONE (13:00)
[2020-08-25 15:23] VITALS: BP_SYST 151
[2020-08-25 20:00] VITALS: BP_SYST 124
[2020-08-25] MEDS: ATORVASTATIN 10 MG TABLET PO SCH (20:37)
[2020-08-25] MEDS: ENOXAPARIN SODIUM 40 MG/0.4 ML SYRINGE SUBCUT SCH (20:38)
[2020-08-26 01:01] VITALS: BP_SYST 130
[2020-08-26] MEDS: INSULIN REGULAR, HUMAN 100 UNITS/ML, 10 ML VIAL (humuLIN R) SUBCUT PRN ×4 (06:22→21:48)
[2020-08-26 07:29] LABS: ANION GAP 9 (5-15); CALCIUM 8.4 mg/dL (8.4-11.0); CHLORIDE 105 mmol/L (98-107); CREATININE 1.35 mg/dL (0.55-1.30); GLUCOSE 203 mg/dL (70-99); POTASSIUM 4.2 mmol/L (3.5-5.1); SODIUM SERUM 140 mmol/L (136-145); UREA NITROGEN, BLOOD 25 mg/dL (8-21)
[2020-08-26 07:55] VITALS: BP_SYST 123
[2020-08-26] MEDS: ARIPiprazole 2 MG TAB PO SCH (09:32)
[2020-08-26] MEDS: DULoxetine HCL 30 MG CAPSULE.DR (CYMBALTA) PO SCH ×2 (09:32→21:42)
[2020-08-26] MEDS: PANTOPRAZOLE SODIUM 40 MG TAB PO SCH (09:32)
[2020-08-26] MEDS: ASPIRIN 81 MG TABLET(ECOTRIN) PO SCH (09:32)
[2020-08-26] MEDS: MAGNESIUM OXIDE 400 MG TABLET PO SCH (09:32)
[2020-08-26] MEDS: BALSAM PERU/CASTOR OIL 60 GM OINT...G. TP SCH (09:32)
[2020-08-26] MEDS: TAMSULOSIN HCL 0.4 MG CAP PO SCH (09:32)
[2020-08-26] MEDS: CLOTRIMAZOLE 1% TOPICAL CREAM 15 GM TP SCH ×2 (09:32→21:42)
[2020-08-26] MEDS: FERROUS SULFATE 325 MG TABLET.DR PO SCH (09:32)
[2020-08-26] MEDS: CYANOCOBALAMIN 1000 mCg TABLET PO SCH (09:33)
[2020-08-26] MEDS: POTASSIUM CHLORIDE 10 MEQ TAB.PRT.SR PO SCH (09:33)
[2020-08-26] MEDS: GABAPENTIN 300 MG CAPSULE PO SCH ×3 (09:33→21:42)
[2020-08-26] MEDS: CARVEDILOL 12.5 MG TABLET (COREG) PO SCH ×2 (09:37→21:42)
[2020-08-26] MEDS: HYDROcodone/ACETAMIN 5-325 MG TAB (NORCO/ VICODIN) PO PRN (09:52)
[2020-08-26] MEDS: NYSTATIN/TRIAMCIN 15 GM TOPICAL OINTMENT TP SCH ×2 (10:07→21:45)
[2020-08-26] MEDS: 0.45% NACL 1,000 ML IV SCH (12:05)
[2020-08-26 12:15] VITALS: BP_SYST 149
[2020-08-26] MEDS ORDERED: GLIMEPIRIDE 2 MG TABLET PO ONE (14:00)
[2020-08-26] MEDS: MILK OF MAGNESIA 30 ML UDC PO PRN (15:03)
[2020-08-26 15:20] VITALS: BP_SYST 134
[2020-08-26 20:00] VITALS: BP_SYST 152
[2020-08-26] MEDS: ATORVASTATIN 10 MG TABLET PO SCH (21:42)
[2020-08-26] MEDS: ENOXAPARIN SODIUM 40 MG/0.4 ML SYRINGE SUBCUT SCH (21:43)
[2020-08-27 00:36] VITALS: BP_SYST 152
[2020-08-27] MEDS: 0.45% NACL 1,000 ML IV SCH ×2 (02:25→13:16)
[2020-08-27] MEDS: INSULIN REGULAR, HUMAN 100 UNITS/ML, 10 ML VIAL (humuLIN R) SUBCUT PRN ×2 (06:15→11:45)
[2020-08-27] MEDS ORDERED: GLIMEPIRIDE 2 MG TABLET PO SCH (07:00)
[2020-08-27 07:40] VITALS: BP_SYST 147
[2020-08-27] MEDS: HYDROcodone/ACETAMIN 5-325 MG TAB (NORCO/ VICODIN) PO PRN ×2 (08:54→10:09)
[2020-08-27] MEDS: FERROUS SULFATE 325 MG TABLET.DR PO SCH (08:55)
[2020-08-27] MEDS: DULoxetine HCL 30 MG CAPSULE.DR (CYMBALTA) PO SCH (08:55)
[2020-08-27] MEDS: TAMSULOSIN HCL 0.4 MG CAP PO SCH (08:55)
[2020-08-27] MEDS: POTASSIUM CHLORIDE 10 MEQ TAB.PRT.SR PO SCH (08:55)
[2020-08-27] MEDS: PANTOPRAZOLE SODIUM 40 MG TAB PO SCH (08:55)
[2020-08-27] MEDS: ARIPiprazole 2 MG TAB PO SCH (08:56)
[2020-08-27] MEDS: ASPIRIN 81 MG TABLET(ECOTRIN) PO SCH (08:56)
[2020-08-27] MEDS: GABAPENTIN 300 MG CAPSULE PO SCH ×2 (08:56→14:02)
[2020-08-27] MEDS: MAGNESIUM OXIDE 400 MG TABLET PO SCH (08:57)
[2020-08-27] MEDS: CARVEDILOL 12.5 MG TABLET (COREG) PO SCH (08:57)
[2020-08-27] MEDS: CYANOCOBALAMIN 1000 mCg TABLET PO SCH (08:57)
[2020-08-27] MEDS: CLOTRIMAZOLE 1% TOPICAL CREAM 15 GM TP SCH (08:58)
[2020-08-27] MEDS: NYSTATIN/TRIAMCIN 15 GM TOPICAL OINTMENT TP SCH (08:59)
[2020-08-27] MEDS: BALSAM PERU/CASTOR OIL 60 GM OINT...G. TP SCH (08:59)
[2020-08-27] MEDS: MILK OF MAGNESIA 30 ML UDC PO PRN (10:08)
[2020-08-27 11:32] VITALS: BP_SYST 149
[2020-08-27 15:33] VITALS: BP_SYST 135
[2020-08-27 16:59] VITALS: BP_SYST 135
== END 2020-08-27 17:30 | disposition home or self-care (01) | DRG 682 ==
LOC: SED 01:21 → SIC 05:03 → SMU 21:30 → STU 21:46 → SMU 08-26 17:24
PROVIDERS: ADMIT Family Medicine; ATTEND Family Medicine
DX: N17.9 Acute kidney failure, unspecified (principal); G93.41 Metabolic encephalopathy; E11.649 Type 2 diabetes mellitus with hypoglycemia without coma; Z20.822 Contact with and (suspected) exposure to COVID-19; L89.629 Pressure ulcer of left heel, unspecified stage; E66.9 Obesity, unspecified; N40.0 Benign prostatic hyperplasia without lower urinary tract symptoms; E86.0 Dehydration; M17.0 Bilateral primary osteoarthritis of knee; I10 Essential (primary) hypertension; R29.6 Repeated falls; Z68.38 Body mass index [BMI] 38.0-38.9, adult; Z79.899 Other long term (current) drug therapy
CPT/HCPCS: 36415; 71045; 76376; 80048; 80053; 81000; 82962; 83036; 83735; 84550; 85025; 87081; 96361; 96374; 96375; 97163; 99291; G0378; J1170; J1650; J1815; J2270; J2405; J2765; J7030; J7060

== ENCOUNTER 2022-08-31 20:56 | Emergency (ER) | payer OTHER, MEDICAID ==
[~2022-08-31] VITALS: Ht 177.8 cm; Wt 113.4 kg
[~2022-08-31 20:56] MED LIST changes: +ARIP5TAB42 PO; -ARIPIPRAZOLE PO; -CEPH-568 PO; +CYAN100010 PO; +CYM30 PO; +FERROUS SULFATE PO; -FLUTICASONE NS; -FURO-150 PO; -HUMULIN R SUBCUT; -HYDR-3919 PO; -HYDR-4037 PO; -INSU500I SQ; -METF-518 PO; +MICO71PO TP; +MYCOLOG15O TP; +MYERBETRIQ PO; -POTA10TA15 PO; +PSEU1TAB PO; -SUDOGEST PO; -TRAMADOL PO
--- NOTE | 2022-08-31 21:00 | NUR ---
Called out patient's name several times in the ER waiting room - no answer.
[2022-08-31 21:05] VITALS: BP_SYST 168
--- NOTE | 2022-08-31 21:05 | NUR ---
Patient triaged and placed in ER ambulance bay for evaluation. Vital signs updated, denied any acute distress at this time. Instructed to notify ED staff for any changes in condition or worsening of symptoms. Patient verbalized understanding.
--- NOTE | 2022-08-31 22:07 | NUR ---
Patient to ER bed 6 to gown for evaluation. Side rails up. Report given to Babak MOORE(reg).
--- NOTE | 2022-08-31 22:08 | NUR ---
Received pt in bed 6, A&OX4, pt c/o of R lower leg wound pain. Kept comfortable at this time.
--- NOTE | 2022-08-31 22:20 | NUR ---
# 20 gauge angiocath placed to R FA. Use of asceptic technique. Opsite placed over site. Blood return noted. Flushed with 10 cc of normal saline. No evidence of infiltration noted. Patient tolerated well.
--- NOTE | 2022-08-31 22:29 | NUR ---
ER Dr. RIVERA at bedside examining patient.
[2022-08-31] MEDS ORDERED: HYDROcodone/ACETAMIN 5-325 MG TAB (NORCO/ VICODIN) PO ONE (22:30)
[2022-08-31 23:11] LABS: BASOPHILS % (AUTO) 0.5 % (0.0-2.0); EOSINOPHILS # (AUTO) 0.5 K/uL (0.0-0.4); EOSINOPHILS % (AUTO) 8.3 % (0.0-4.0); HEMATOCRIT 34.5 % (36-54); LYMPHOCYTES # (AUTO) 1.5 K/uL (1.0-5.5); LYMPHOCYTES % (AUTO) 26.6 % (20.5-51.5); MEAN CORPUSCULAR HEMOGLOBIN 25 pg (27-31); MEAN CORPUSCULAR HGB CONC 32 % (32-36); MEAN CORPUSCULAR VOLUME 80 fL (79.0-98.0); MONOCYTES # (AUTO) 0.6 K/uL (0.0-1.0); MONOCYTES % (AUTO) 11.1 % (1.7-9.3); NEUTROPHILS # (AUTO) 3.1 K/uL (1.8-7.7); NEUTROPHILS % (AUTO) 53.5 % (40.0-70.0); PLATELET COUNT (AUTO) 188 K/uL (130-430); RED BLOOD CELL COUNT(AUTO) 4.33 MIL/uL (4.2-6.2); RED CELL DISTRIBUTION WIDTH 14.6 % (9.0-15.0); WHITE BLOOD COUNT (AUTO) 5.7 K/uL (4.8-10.8)
[2022-08-31 23:21] LABS: ANION GAP 4 (5-15); CALCIUM 7.8 mg/dL (8.4-11.0); CHLORIDE 104 mmol/L (98-107); CREATININE 1.91 mg/dL (0.55-1.30); GLUCOSE 203 mg/dL (70-99); UREA NITROGEN, BLOOD 35 mg/dL (8-21)
[2022-08-31 23:26] LABS: ERYTHROCYTE SEDIMENTATION RATE 64 MM/HR (0-15)
[2022-08-31 23:27] LABS: ALANINE AMINOTRANSFERASE 12 U/L (12-78); ALBUMIN 2.4 g/dL (3.4-4.8); ASPARTATE AMINOTRANSFERASE 9 U/L (10-37); C-REACTIVE PROTEIN QUANT 1.6 mg/dL (0-0.5); TOTAL BILIRUBIN 0.2 mg/dL (0.0-1.0)
[2022-09-01] MEDS ORDERED: CEPH-548 PO (01:09)
[2022-09-01] MEDS ORDERED: HYDROcodone/ACETAMIN 5-325 MG TAB (NORCO/ VICODIN) PO ONE (01:45)
--- NOTE | 2022-09-01 01:48 | NUR ---
Upon discharging patient, pt c/o pain on the left inner thigh. Pt rates pain 11/15, made MD aware.
--- NOTE | 2022-09-01 02:11 | NUR ---
YOGI LOWER EXTREMITY CELLULITIS CLEANSED W/ NS, PAT DRY, COVERED W/ DD & WRAPPED W/ KERLIX, PT TOLERATED WELL.
[2022-09-01 04:05] VITALS: BP_SYST 138
--- NOTE | 2022-09-01 04:14 | NUR ---
Patient given written and verbal discharge instructions and verbalizes understanding. ER Dr Wilhelm discussed with patient the results and treatment provided. Patient in stable condition. ID arm band removed. IV catheter removed intact and dressing applied, no active bleeding. Rx of Cephalexin given. Patient educated on pain management and to follow up with PMD. Pain Scale 2/10. Opportunity for questions provided and answered. Medication side effect fact sheet provided.
--- NOTE | 2022-09-01 04:25 | NUR ---
Notified Eliud Moore, spoke with Jim Helion [employer]yn[employer] advising patient on way back to facility.
== END 2022-09-01 04:05 | disposition home or self-care (01) ==
LOC: SED 20:56
DX: L03.116 Cellulitis of left lower limb (principal); L03.115 Cellulitis of right lower limb; R22.43 Localized swelling, mass and lump, lower limb, bilateral; I11.0 Hypertensive heart disease with heart failure; I50.9 Heart failure, unspecified; E11.22 Type 2 diabetes mellitus with diabetic chronic kidney disease; N18.9 Chronic kidney disease, unspecified; Z79.899 Other long term (current) drug therapy
CPT/HCPCS: 36415; 80053; 85025; 85651-TC; 86140; 99285

== ENCOUNTER 2022-11-10 16:07 | Inpatient (IN) | payer OTHER, MEDICAID ==
[~2022-11-10] VITALS: Ht 177.8 cm; Wt 124.7 kg
[~2022-11-10 16:07] MED LIST changes: +CEPH-548 PO
[2022-11-10 16:15] VITALS: BP_SYST 154; PULSE 95; RESP 18; TEMP 98.3; O2SAT 93
--- NOTE | 2022-11-10 16:45 | NUR ---
PATIENT BIB BLS AMBULANCE C/O GROIN & BILAT LEG PAIN 12/16. PATIENT STATES THIS HAS BEEN GOING ON FOR 6 MONTHS & BUT HE CAME TODAY BECAUSE HE WANTS IT EVALUATED. SWELLING NOTED TO BLE. MED HX HTN, HLD, DM, CKD, MILD COGNITIVE IMPAIRMENT. NKA. VSS.
--- NOTE | 2022-11-10 17:00 | NUR ---
DR ROCHA AT BEDSIDE
--- NOTE | 2022-11-10 17:03 | NUR ---
PATIENT TO RADIOLOGY
--- NOTE | 2022-11-10 17:30 | NUR ---
LABS DRAWN FOR TESTING
[2022-11-10 17:52] LABS: BASOPHILS % (AUTO) 0.4 % (0.0-2.0); EOSINOPHILS # (AUTO) 0.4 K/uL (0.0-0.4); EOSINOPHILS % (AUTO) 5.9 % (0.0-4.0); HEMATOCRIT 31.1 % (36-54); HEMOGLOBIN 9.7 g/dL (14.0-18.0); LYMPHOCYTES # (AUTO) 1.9 K/uL (1.0-5.5); LYMPHOCYTES % (AUTO) 26.4 % (20.5-51.5); MEAN CORPUSCULAR HEMOGLOBIN 24 pg (27-31); MEAN CORPUSCULAR HGB CONC 31 % (32-36); MEAN CORPUSCULAR VOLUME 78 fL (79.0-98.0); MONOCYTES # (AUTO) 0.7 K/uL (0.0-1.0); MONOCYTES % (AUTO) 9.8 % (1.7-9.3); NEUTROPHILS # (AUTO) 4.2 K/uL (1.8-7.7); NEUTROPHILS % (AUTO) 57.5 % (40.0-70.0); PLATELET COUNT (AUTO) 260 K/uL (130-430); RED BLOOD CELL COUNT(AUTO) 4.01 MIL/uL (4.2-6.2); RED CELL DISTRIBUTION WIDTH 15.5 % (9.0-15.0); WHITE BLOOD COUNT (AUTO) 7.3 K/uL (4.8-10.8)
[2022-11-10 17:55] LABS: ANION GAP 8 (5-15); CHLORIDE 106 mmol/L (98-107); GLUCOSE 189 mg/dL (74-106); UREA NITROGEN, BLOOD 35 mg/dL (8-21)
--- NOTE | 2022-11-10 17:55 | NUR ---
URINAL PROVIDED PT VSS NAD
[2022-11-10 18:27] LABS: ALANINE AMINOTRANSFERASE 13 U/L (12-78); ALBUMIN 2.4 g/dL (3.4-4.8); ASPARTATE AMINOTRANSFERASE 13 U/L (10-37); TOTAL BILIRUBIN 0.2 mg/dL (0.0-1.0)
[2022-11-10 18:44] LABS: ACETONE, SERUM NEGATIVE (NEGATIVE)
--- NOTE | 2022-11-10 20:00 | NUR ---
IV STARTED LEFT HAND 20G
[2022-11-10] MEDS ORDERED: VANCOMYCIN HCL 1,000 MG in NS 250 ML IV ONE (21:00)
[2022-11-10] MEDS ORDERED: cefTRIAXone 1 GM IVPB PREMIX 50 ML IV ONE (21:00)
--- NOTE | 2022-11-10 21:00 | NUR ---
NO CHANGES IN PT STATUS NOTED VSS CONNECTED TO CONTINOUS VS MONITORING.
--- NOTE | 2022-11-10 22:52 | NUR ---
Admit bed requested Patient will be admitted to care of . Admitted to TELE unit. Diagnosis CHF, BILATERAL CELLULITIS LOWER EXTREMITIES Inpatient (Yes or No) Observation (Yes or No) N Orientation concerns or request close to nursing station (Yes or No) N Covid Status N/A On vent or bipap NO Isolation requirements N Needs a sitter N From Home (Yes or if No enter name of facility) YES Requires Dialysis (Yes or No) NO Med Rec Completed (Yes of No) YES
[2022-11-10] MEDS ORDERED: INSULIN REGULAR, HUMAN 100 UNITS/ML, 3 ML VIAL (humuLIN R) SUBCUT PRN (23:00)
[2022-11-10] MEDS ORDERED: *LOVENOX 1MG/KG Q24H/PHARMACY XX ONE (23:00)
[2022-11-10] MEDS ORDERED: ENOXAPARIN SODIUM 120 MG/0.8 ML SYRINGE SUBCUT SCH (23:30)
[2022-11-10] MEDS ORDERED: LACT10SO6 PO (23:40)
[2022-11-10] MEDS ORDERED: INSU100I26 SQ (23:40)
[2022-11-10] MEDS ORDERED: HUM100IN SQ (23:40)
[2022-11-10] MEDS ORDERED: PSEU1TAB PO (23:40)
[2022-11-10] MEDS ORDERED: GLIM4TAB PO (23:40)
[2022-11-10] MEDS ORDERED: FLEETMO RC (23:40)
[2022-11-10] MEDS ORDERED: DULA1.5P SQ (23:40)
[2022-11-11] VITALS (7 sets, daily range): BP systolic 135–149; PULSE 60–80; RESP 16–19; TEMP 97.5–98.7; O2SAT 95–97
[2022-11-11] MEDS ORDERED: VANCOMYCIN HCL 1000 MG/VIAL IV ONE (00:04)
--- NOTE | 2022-11-11 00:33 | NUR ---
Admission Note Received patient from ER with diagnosis of CHF. Initial Plan of Care discussed-patient verbalized understanding. Oriented to room, call light, pain management and safety.
--- NOTE | 2022-11-11 00:34 | NUR ---
Patient will be admitted to care of DR PEREZ. Admitted to TELE unit. Will go to room 129A. Belongings list completed. Complete and up to date summary report printed. SBAR report to ELOISA MOORE be given at bedside with opportunity for questions.
--- NOTE | 2022-11-11 03:30 | NUR ---
ROUNDS PATIENT IN BED, RESTING AT THIS TIME. NO SIGNS OF DISCOMFORT. CHEST RISE AND FALL EVEN BILATERALLY. ALL NEEDS MET. WILL MONITOR.
[2022-11-11 06:25] LABS: BASOPHILS % (AUTO) 0.5 % (0.0-2.0); EOSINOPHILS # (AUTO) 0.3 K/uL (0.0-0.4); EOSINOPHILS % (AUTO) 4.6 % (0.0-4.0); HEMATOCRIT 31.5 % (36-54); HEMOGLOBIN 9.9 g/dL (14.0-18.0); LYMPHOCYTES # (AUTO) 1.5 K/uL (1.0-5.5); LYMPHOCYTES % (AUTO) 22.2 % (20.5-51.5); MEAN CORPUSCULAR HEMOGLOBIN 24 pg (27-31); MEAN CORPUSCULAR HGB CONC 31 % (32-36); MEAN CORPUSCULAR VOLUME 77 fL (79.0-98.0); MONOCYTES # (AUTO) 0.6 K/uL (0.0-1.0); NEUTROPHILS # (AUTO) 4.4 K/uL (1.8-7.7); NEUTROPHILS % (AUTO) 63.7 % (40.0-70.0); PLATELET COUNT (AUTO) 271 K/uL (130-430); RED BLOOD CELL COUNT(AUTO) 4.08 MIL/uL (4.2-6.2); RED CELL DISTRIBUTION WIDTH 14.9 % (9.0-15.0); WHITE BLOOD COUNT (AUTO) 6.9 K/uL (4.8-10.8)
--- NOTE | 2022-11-11 06:36 | NUR ---
CLOSING NOTE PATIENT IN BED, RESTING AT THIS TIME. NO S/S OF ACUTE DISTRESS. BREATHING EVEN AND UNLABORED. IV SITE PATENT, NO SIGNS OF INFILTRATION OR INFECTION NOTED. SKIN WARM AND DRY TO TOUCH, NO SIGNS OF HYPOGLYCEMIA NOTED. ALL NEEDS MET THROUGHOUT SHIFT. FALL, SAFETY PRECAUTIONS MAINTAINED THROUGHOUT SHIFT. WILL CONTINUE TO MONITOR UNTIL PATIENT CARE IS ENDORSED TO ONCOMING DAYSHIFT NURSE.
[2022-11-11 06:48] LABS: ALANINE AMINOTRANSFERASE 12 U/L (12-78); ALBUMIN 2.2 g/dL (3.4-4.8); ANION GAP 7 (5-15); ASPARTATE AMINOTRANSFERASE 12 U/L (10-37); CHLORIDE 107 mmol/L (98-107); CREATININE 1.99 mg/dL (0.55-1.30); GLUCOSE 159 mg/dL (74-106); TOTAL BILIRUBIN 0.2 mg/dL (0.0-1.0); UREA NITROGEN, BLOOD 32 mg/dL (8-21)
--- NOTE | 2022-11-11 07:10 | NUR ---
OPENING NOTES PATIENT IS RESTING WITH BLANKET OVER HIS HEAD. BREATHING UNLABORED ON RA. REPORTED MILD PAIN ON BILATERAL LEG. NO DISTRESS, NO SOB REPORTED. BED ALARM ON. ENCOURAGE PATIENT TO USE CALL LIGHT FOR HELP. CALL LIGHT WITHIN REACH. BED LOCKED IN LOWEST POSITION. WILL CONTINUE WITH PLAN OF CARE.
[2022-11-11] MEDS ORDERED: VANCOMYCIN HCL 1,500 MG in NS 250 ML IV SCH ×2 (08:15→22:00)
[2022-11-11] MEDS ORDERED: MILK OF MAGNESIA 30 ML UDC PO PRN (09:00)
[2022-11-11] MEDS ORDERED: D5W 1,000 ML IV PRN (09:00)
[2022-11-11] MEDS ORDERED: MICONAZOLE NITRATE 85 GM TP SCH (09:00)
[2022-11-11] MEDS ORDERED: cloNIDine HCL 0.1 MG TABLET PO PRN (09:00)
[2022-11-11] MEDS ORDERED: GLUCOSE (DEXTROSE) ORAL GEL -Adults PO PRN (09:00)
[2022-11-11] MEDS ORDERED: MIRABEGRON 50 MG PO SCH (09:00)
[2022-11-11] MEDS ORDERED: BENZONATATE 100 MG CAPSULE (TESSALON) PO PRN (09:00)
[2022-11-11] MEDS ORDERED: NYSTATIN/TRIAMCIN 15 GM TOPICAL OINTMENT TP SCH (09:00)
[2022-11-11] MEDS ORDERED: DEXTROSE 50%-WATER 50 ML DISP.SYRIN IVP PRN (09:00)
[2022-11-11] MEDS: MAGNESIUM OXIDE 400 MG TABLET PO SCH (09:44)
[2022-11-11] MEDS: DULoxetine HCL 30 MG CAPSULE.DR (CYMBALTA) PO SCH ×2 (09:44→21:56)
[2022-11-11] MEDS: ARIPiprazole 2 MG TAB PO SCH (09:44)
[2022-11-11] MEDS: CYANOCOBALAMIN (VITAMIN B-12) 1,000 MCG TABLET PO SCH (09:44)
[2022-11-11] MEDS: ASPIRIN 81 MG TABLET(ECOTRIN) PO SCH (09:44)
[2022-11-11] MEDS: lisinopriL 20 MG TABLET PO SCH (09:45)
[2022-11-11] MEDS: PANTOPRAZOLE SODIUM 40 MG TAB PO SCH (09:45)
[2022-11-11] MEDS: GABAPENTIN 300 MG CAPSULE PO SCH ×3 (09:45→21:57)
[2022-11-11] MEDS: ENOXAPARIN SODIUM 30 MG/0.3 ML SYRINGE SUBCUT SCH (09:46)
[2022-11-11] MEDS: CARVEDILOL 12.5 MG TABLET (COREG) PO SCH ×2 (09:46→21:56)
[2022-11-11] MEDS: TAMSULOSIN HCL 0.4 MG CAP PO SCH (09:48)
[2022-11-11] MEDS: MINERAL OIL 133 ML ENEMA RC SCH (09:56)
--- NOTE | 2022-11-11 12:00 | NUR ---
SPOKE TO DAUGHTER AUDREY OVER THE PHONE REGARDING UPDATE OF THE PATIENT, UPDATE GIVEN.
--- NOTE | 2022-11-11 12:00 | NUR ---
ROUNDING NOTES PATIENT IS RESTING, BREATHING UNLABORED ON RA. PATIENT HAVE SEVERE CONSTIPATION AND REQUESTING TO USE BEDSIDE COMMODE. BED NINO IS BEING OFFER. NO SOB NOTED. PATIENT HAS BEEN EDUCATED ON FALL PRECAUTIONS. ALL NEED MET AT THIS TIME. SAFETY PRECAUTION IN PLACE. CALL LIGHT WITHIN REACH. BED ALARM ON. BED LOCKED IN LOWEST POSITION. WILL CONTINUE WITH PLAN OF CARE.
[2022-11-11] MEDS: INSULIN GLARGINE 100 UNITS/ML, 10 ML VIAL SUBCUT SCH ×2 (12:06→21:58)
[2022-11-11] MEDS: GLIMEPIRIDE 2 MG TABLET PO SCH (12:37)
[2022-11-11] MEDS: AMPICILLIN SODIUM/SULBACTAM NA 1.5 GM in NS 50 ML IV SCH ×3 (13:18→22:50)
--- NOTE | 2022-11-11 16:00 | NUR ---
ROUNDING NOTES PATIENT IS RESTING, BREATHING UNLABORED ON RA. NO SOB NOTED. PATIENT IS STILL C/O OF WANTING TO GET UP AND USE BEDSIDE COMMODE INSTEAD OF BED NINO. EDUCATED PATIENT ON FALL PRECAUTION. SAFETY PRECAUTION IN PLACE. BED ALARM ON. CALL LIGHT WITHIN REACH. BED LOCKED IN LOWEST POSITION. WILL CONTINUE WITH PLAN OF CARE.
--- NOTE | 2022-11-11 18:50 | NUR ---
CLOSING NOTES PATIENT IS RESTING, BREATHING UNLABORED ON RA. NO PAIN, NO DISTRESS, NO SOB NOTED. SAFETY PRECAUTION IN PLACE. CALL LIGHT WITHIN REACH. BED ALARM ON. BED LOCKED IN LOWEST POSITION. WILL ENDORSE TO METALLURGICAL ENGINEERING TECHNICIAN NURSE.
--- NOTE | 2022-11-11 19:15 | NUR ---
OPENING NOTE REPORT RECEIVED FROM DAYSHIFT NURSE. PATIENT RECEIVED LYING IN BED, AWAKE. NO S/S OF ACUTE DISTRESS. BREATHING EVEN AND UNLABORED. IV SITE PATENT. SKIN WARM AND DRY. BED IS LOCKED AND AT LOWEST POSITION. BED ALARM ON. CALL LIGHT WITH PATIENT. WILL CONTINUE TO MONITOR.
[2022-11-11] MEDS ORDERED: cefTRIAXone 1 GM VIAL IM SCH (21:00)
[2022-11-11] MEDS: ATORVASTATIN 10 MG TABLET PO SCH (21:57)
[2022-11-11] MEDS: DOCUSATE SODIUM 100 MG CAPSULE PO PRN (21:58)
--- NOTE | 2022-11-11 23:00 | NUR ---
ROUNDS PATIENT IN BED, RESTING. ALL NEEDS MET. AT THIS TIME. WILL MONITOR.
[2022-11-12] VITALS (7 sets, daily range): BP systolic 140–173; PULSE 47–79; RESP 16–17; TEMP 96.9–97.5; O2SAT 95–98
--- NOTE | 2022-11-12 01:00 | NUR ---
BOWEL MOVEMENT PATIENT ASSISTED TO BSC AND BACK TO BED. TOLERATED WELL. PATIENT HAD A BIG BOWEL MOVEMENT. PATIENT HAD A SMILE ON HIS FACE, PATIENT STATED "IT'S BEEN 5 DAYS". ALL NEEDS MET AT THIS TIME. WILL MONITOR.
--- NOTE | 2022-11-12 03:12 | NUR ---
ROUNDS PATIENT IN BED, RESTING. ALL NEEDS MET. WILL MONITOR.
[2022-11-12 05:15] LABS: BASOPHILS % (AUTO) 0.3 % (0.0-2.0); EOSINOPHILS # (AUTO) 0.3 K/uL (0.0-0.4); EOSINOPHILS % (AUTO) 4.2 % (0.0-4.0); HEMATOCRIT 32.1 % (36-54); LYMPHOCYTES # (AUTO) 1.7 K/uL (1.0-5.5); LYMPHOCYTES % (AUTO) 23.5 % (20.5-51.5); MEAN CORPUSCULAR HEMOGLOBIN 24 pg (27-31); MEAN CORPUSCULAR HGB CONC 31 % (32-36); MEAN CORPUSCULAR VOLUME 77 fL (79.0-98.0); MONOCYTES # (AUTO) 0.6 K/uL (0.0-1.0); MONOCYTES % (AUTO) 8.5 % (1.7-9.3); NEUTROPHILS # (AUTO) 4.7 K/uL (1.8-7.7); NEUTROPHILS % (AUTO) 63.5 % (40.0-70.0); PLATELET COUNT (AUTO) 266 K/uL (130-430); RED BLOOD CELL COUNT(AUTO) 4.15 MIL/uL (4.2-6.2); RED CELL DISTRIBUTION WIDTH 15.4 % (9.0-15.0); WHITE BLOOD COUNT (AUTO) 7.5 K/uL (4.8-10.8)
[2022-11-12 05:30] LABS: ANION GAP 9 (5-15); CALCIUM 7.8 mg/dL (8.4-11.0); CHLORIDE 107 mmol/L (98-107); CREATININE 1.94 mg/dL (0.55-1.30); GLUCOSE 83 mg/dL (74-106); UREA NITROGEN, BLOOD 30 mg/dL (8-21)
[2022-11-12] MEDS: GLIMEPIRIDE 2 MG TABLET PO SCH (06:16)
[2022-11-12] MEDS: AMPICILLIN SODIUM/SULBACTAM NA 1.5 GM in NS 50 ML IV SCH ×3 (06:16→17:01)
--- NOTE | 2022-11-12 06:40 | NUR ---
CLOSING NOTE PATIENT IN BED, RESTING AT THIS TIME. NO S/S OF ACUTE DISTRESS. BREATHING EVEN AND UNLABORED. HOB RAISED. IV SITE PATENT. SKIN WARM AND DRY TO TOUCH. ALL NEEDS MET. WILL MONITOR UNTIL PATIENT CARED IS ENDORSED TO ONCOMING DAYSHIFT NURSE. FALL SAFETY PRECAUTIONS IN PLACE.
--- NOTE | 2022-11-12 07:10 | NUR ---
OPENING NOTES PATIENT IS RESTING, BREATHING UNLABORED ON RA. REPORT MILD PAIN ON LOWER EXTREMITIES AND ABD. NO SOB REPORTED. IVF INFUSING WELLED. ALL NEED MET AT THIS TIME. ENCOURAGE PATIENT TO USE CALL LIGHT FOR HELP. ALL NEED MET AT THIS TIME. SAFETY PRECAUTION IN PLACE. CALL LIGHT WITHIN REACH. BED LOCKED IN LOWEST POSITION. WILL CONTINUE WITH PLAN OF CARE.
[2022-11-12] MEDS: ASPIRIN 81 MG TABLET(ECOTRIN) PO SCH (08:45)
[2022-11-12] MEDS: CARVEDILOL 12.5 MG TABLET (COREG) PO SCH (08:45)
[2022-11-12] MEDS: GABAPENTIN 300 MG CAPSULE PO SCH ×3 (08:45→22:30)
[2022-11-12] MEDS: ARIPiprazole 2 MG TAB PO SCH (08:45)
[2022-11-12] MEDS: DULoxetine HCL 30 MG CAPSULE.DR (CYMBALTA) PO SCH ×2 (08:45→22:30)
[2022-11-12] MEDS: TAMSULOSIN HCL 0.4 MG CAP PO SCH (08:46)
[2022-11-12] MEDS: CYANOCOBALAMIN (VITAMIN B-12) 1,000 MCG TABLET PO SCH (08:46)
[2022-11-12] MEDS: lisinopriL 20 MG TABLET PO SCH (08:46)
[2022-11-12] MEDS: FERROUS SULFATE 325 MG TABLET.DR PO SCH (08:46)
[2022-11-12] MEDS: PANTOPRAZOLE SODIUM 40 MG TAB PO SCH (08:46)
[2022-11-12] MEDS: MAGNESIUM OXIDE 400 MG TABLET PO SCH (08:46)
[2022-11-12] MEDS: ENOXAPARIN SODIUM 30 MG/0.3 ML SYRINGE SUBCUT SCH (08:47)
[2022-11-12] MEDS: MIRABEGRON 50 MG PO SCH (09:00)
[2022-11-12] MEDS: MINERAL OIL 133 ML ENEMA RC SCH (09:00)
--- NOTE | 2022-11-12 09:04 | NUR ---
PATIENT BLOOD SUGAR IS 78. WILL HOLD ON TO LATUS GLARGINE. WILL RECHECK BLOOD SUGAR AFTER PATIENT EAT BREAKFAST.
[2022-11-12] MEDS: INSULIN GLARGINE 100 UNITS/ML, 10 ML VIAL SUBCUT SCH ×2 (09:53→21:00)
--- NOTE | 2022-11-12 10:04 | NUR ---
SENT PACKET OVER TO [facility] AND SPOKE TO LAURO WHO WILL REVIEW IT AND CALL BACK WITH A ROOM #. [phone]. CALLED [facility] FOR TRANSPORTION WILL CALL FOR TOMORROW . [phone] Addendum: 11/12/22 at 1045 by Nell Hutchison DP MR BURNETT WILL BE GOING TO ROOM# 50A AT [facility].
[2022-11-12] MEDS: DOCUSATE SODIUM 100 MG CAPSULE PO PRN (10:05)
--- NOTE | 2022-11-12 12:00 | NUR ---
ROUNDING NOTES PATIENT IS RESTING, EYE CLOSED. BREATHING UNLABORED ON RA. C/O OF PAIN ON BUTTOCK AND SCROTUM, AND YOGI LOWER EXTREMITIES. APPLY TP CREAM ON BUTTOCK AREA. POSITION PATIENT FOR COMFORT. ALL NEED MET AT THIS TIME. CALL LIGHT WITHIN REACH. BED LOCKED IN LOWEST POSITION. BED ALARM ON. SAFETY PRECAUTION IN PLACE. WILL CONTINUE WITH PLAN OF CARE.
--- NOTE | 2022-11-12 14:15 | NUR ---
WOUND EVALUATION: Wound Consult received from Dr. Ambriz. Thank you, Dr. Ambriz, for the consult. Patient received in a [place] Bed with an Isoflex JIMENA mattress, awake, alert, and oriented x 3. Patient is able to turn in bed with minimal assist. Jake Score is a 15. Past Medical History: Hypertension, Insulin-Dependent Diabetes Mellitus, Chronic Kidney Disease, cellulitis of lower extremities, Hyperlipidemia. Recent Labs: WBC 7.5, RBC 4.15, hemoglobin 10.0, hematocrit 32.1, BUN 30, creatinine 1.94, calcium 7.8, albumin 2.2. Microbiology: Blood culture results x2 in progress. MRSA screen results in progress. Intrinsic factors that delay wound healing: Insulin-Dependent Diabetes Mellitus, Chronic Kidney Disease, cellulitis of lower extremities, Hyperglycemia, Hypoalbuminemia. Extrinsic factors that delay wound healing: Decreased mobility. Wound Assessment: 1. Left Anterior Medial [place]: Chronic wound, present on admission. Wound bed has 10% black scab, 90% dry, pink, healed tissue. No odor, no drainage. Site measures 0.9 cm x 1.0 cm. Recommend: [place] wound site with Betadine allow Betadine to air dry. Cover site with foam dressing. Perform site care daily, and as needed for dressing soiling or dislodgment. 2. Left Lower Extremity: Cellulitis, present on admission. Site has moderate non-pitting edema, erythema, calor, hemosiderin staining, and dry, scaly, flaky skin. 3. Right Lower Extremity: Cellulitis, present on admission. Site has moderate non-pitting edema, erythema, calor, hemosiderin staining, and dry, scaly, flaky skin. Recommend: Cleanse involved areas with mild soap and water. Gently pat dry. Apply ammonium lactate lotion to involved areas. Perform site care twice daily. 4. Left Inguinal area: IAD with erythema. No odor, no drainage. 5. Right Inguinal area: IAD with erythema and MASD with a few small scattered areas of non-intact skin. No odor, no drainage. 6. Scrotum: IAD with erythema. No odor, no drainage. Recommend: Cleanse involved areas with mild soap and water. Gently pat dry. Place Interdry AG cloth underneath scrotum. Apply antifungal powder to scrotal and bilateral Inguinal areas. Dust off excess antifungal powder. Pull Interdry Ag cloth up and in between bilateral thighs, elevating scrotum off of bed. Also recommend: Encourage and assist patient as needed with repositioning every 2 hours with pillow support and off-load pressure areas with pillows for pressure re-distribution. Offload, elevate and float bilateral heels with pillows. Perform skin care and monitor skin integrity Q shift. Use moisture barrier cream on buttocks and other moisture susceptible areas QID and as needed for soiling. Maintain patient on a low air-loss mattress.
--- NOTE | 2022-11-12 16:00 | NUR ---
ROUNDING NOTES PATIENT IS RESTING, BREATHING UNLABORED ON RA. NO PAIN, NO DISTRESS, NO SOB NOTED. ALL NEED MET AT THIS TIME. CALL LIGHT WITHIN REACH. BED LOCKED IN LOWEST POSITION. PROVIDE COMFORT MEASURE. WILL CONTINUE WITH PLAN OF CARE.
--- NOTE | 2022-11-12 16:19 | NUR ---
Dietitian Recommendations * CCHO, Cardiac diet, Glucerna BID (ONS yields 440 kcal/day, 20 gm protein/day) * Encourage good PO intakes LP, MS, RD Please refer to Nutrition Assessment for details. Addendum: 11/12/22 at [address] Amended: Links added.
[2022-11-12] MEDS: AMMONIUM LACTATE 226 GM LOTION TP SCH ×2 (19:17→21:00)
[2022-11-12] MEDS: NYSTATIN 15 GM TOPICAL POWDER TP SCH ×2 (19:18→21:00)
--- NOTE | 2022-11-12 19:52 | NUR ---
CLOSING NOTES PATIENT IS RESTING, BREATHING UNLABORED ON RA. REPOSITION PATIENT FOR COMFORT. ALL NEED MET AT THIS TIME. CALL LIGHT WITHIN REACH. BED LOCKED IN LOWEST POSITION. BED ALARM ON. WILL ENDORSE TO REAL ESTATE LAWYER NURSE.
[2022-11-12] MEDS: CARVEDILOL 25 MG TABLET (COREG) PO SCH (21:00)
--- NOTE | 2022-11-12 21:00 | NUR ---
ASSESSMENT COMPLETED PLAN OF CARE REVIEWED PT DENIES PAIN AT THIS TIME NO DISTRESS NOTED CALL LIGHT PLACED IN REACH PT SCHEDULED TO BE PICKED UP 11/13/22 AT 1100 AND MADE AWARE IV PATENT PT USING URINAL WILL CONTINUE TO MONITOR AND ASSESS ADVISED TO CALL FOR ASSISTANCE CALL LIGHT IN REACH BED IN LOW POSITION PT COMPLIANT WITH PLAN OF CARE
[2022-11-12] MEDS: ATORVASTATIN 10 MG TABLET PO SCH (22:30)
--- NOTE | 2022-11-13 | NUR ---
ASLEEP AT THIS TIME CONDITION STABLE NO ACUTE DISTRESS NOTED WILL CONTINUE TO MONITOR AND ASSESS ABLE TO TURN AND REPOSITION SELF CALL LIGHT IN REACH
[2022-11-13] MEDS: AMPICILLIN SODIUM/SULBACTAM NA 1.5 GM in NS 50 ML IV SCH ×4 (00:10→18:00)
[2022-11-13 00:24] VITALS: BP_SYST 161; PULSE 77; RESP 20; TEMP 97; O2SAT 97
--- NOTE | 2022-11-13 06:29 | NUR ---
PT STABLE ALL NEEDS ANTICIPATED AND MET NO SIGNIFICANT CHANGES DENIES PAIN AT THIS TIME WILL ENDORSE CARE TO ONCOMING LICENSED NURSE
[2022-11-13] MEDS: GLIMEPIRIDE 2 MG TABLET PO SCH (06:58)
--- NOTE | 2022-11-13 06:58 | NUR ---
BLOOD GLUCOSE 67MG/DL PT ASYMPTOMATIC ORANGE JUICE GIVEN AND AMARYL GIVEN ORDERED WILL ENDORSE AM LICENSED NURSE TO FOLLOW UP PT STABLE AT THIS TIME A/OX3 NO ACUTE DISTRESS COMPLIANT WITH CARE AT THIS TIME AND FINISHED ORANGE JUICE
[2022-11-13 08:00] VITALS: BP_SYST 128; PULSE 76; RESP 16; TEMP 97; O2SAT 97; O2SAT 98
[2022-11-13] MEDS: PANTOPRAZOLE SODIUM 40 MG TAB PO SCH (08:56)
[2022-11-13] MEDS: CARVEDILOL 25 MG TABLET (COREG) PO SCH (08:58)
[2022-11-13] MEDS: DULoxetine HCL 30 MG CAPSULE.DR (CYMBALTA) PO SCH (08:58)
[2022-11-13] MEDS: CYANOCOBALAMIN (VITAMIN B-12) 1,000 MCG TABLET PO SCH (08:58)
[2022-11-13] MEDS: ARIPiprazole 2 MG TAB PO SCH (08:58)
[2022-11-13] MEDS: lisinopriL 20 MG TABLET PO SCH (08:58)
[2022-11-13] MEDS: ASPIRIN 81 MG TABLET(ECOTRIN) PO SCH (08:58)
[2022-11-13] MEDS: MINERAL OIL 133 ML ENEMA RC SCH ×3 (08:59→09:12)
[2022-11-13] MEDS: TAMSULOSIN HCL 0.4 MG CAP PO SCH (08:59)
[2022-11-13] MEDS: MAGNESIUM OXIDE 400 MG TABLET PO SCH (08:59)
[2022-11-13] MEDS: FERROUS SULFATE 325 MG TABLET.DR PO SCH (08:59)
[2022-11-13] MEDS: GABAPENTIN 300 MG CAPSULE PO SCH ×2 (08:59→14:33)
[2022-11-13] MEDS: MIRABEGRON 50 MG PO SCH (09:00)
[2022-11-13] MEDS: AMMONIUM LACTATE 226 GM LOTION TP SCH (09:00)
[2022-11-13] MEDS: NYSTATIN 15 GM TOPICAL POWDER TP SCH (09:00)
[2022-11-13] MEDS: ENOXAPARIN SODIUM 30 MG/0.3 ML SYRINGE SUBCUT SCH (09:00)
[2022-11-13] MEDS: INSULIN GLARGINE 100 UNITS/ML, 10 ML VIAL SUBCUT SCH (09:03)
[2022-11-13 09:48] VITALS: BP_SYST 128; PULSE 76; RESP 16; TEMP 97; O2SAT 97
[2022-11-13] MEDS: INSULIN REGULAR, HUMAN 100 UNITS/ML, 3 ML VIAL (humuLIN R) SUBCUT PRN ×2 (11:45→17:25)
[2022-11-13 11:51] VITALS: BP_SYST 147; PULSE 75; RESP 17; TEMP 97.1; O2SAT 97
--- NOTE | 2022-11-13 12:48 | NUR ---
Nutrition Consult RD received Nutrition Consult d/t Low Jake Score, Venous Insufficiency BLE 11/12/[address] assessed pt yesterday. Please refer to Nutrition Assessment for details.
--- NOTE | 2022-11-13 17:28 | NUR ---
PT ALERT AND ORIENTED, NO C/O PAIN OR SOB. VSS. VOIDING. REFUSES INSULIN FOR BLOOD GLUCOSE OF 178 AND 163 BEFORE LUNCH AND DINNER. AM LANTUS GIVEN ORDERD. SITTING AT EDGE OF BED AD VONNIE - FALL PRECAUTIONS IN PLACE. PT TO BE DISCHARGED TO [facility]. REPORT CALLED TO LADY MOORE AT 1700. [facility] MANA[facility] AT @ 1800.
[2022-11-13 18:27] VITALS: BP_SYST 116; PULSE 56; RESP 17; TEMP 97.9; O2SAT 95
--- NOTE | 2022-11-13 18:43 | NUR ---
PROBLEM WITH AMBULANCE TRANSFER - NEW FIELD MARKETING COORDINATOR TIME IS [id number].
--- NOTE | 2022-11-13 20:10 | NUR ---
D/C PATIENT HAS BEEN DISCHARGE VIA [facility]UL[facility] TO [facility], BELONGINGS WITH PATIENT, IV IS REMOVED.
--- NOTE | 2022-11-15 07:55 | NUR ---
PHYSICAL THERAPY CO-SIGN The Physical Therapy Progress Notes documented by Outpatient Receptionist have been reviewed. Reviewed/Co-Signed by: Bravo Harris Documentation Done by:ALESSANDRA DAVIS Addendum: 11/15/22 at 7575 by Bravo Harris PT Amended: Links added.
== END 2022-11-13 21:27 | DRG 602 ==
LOC: SED 16:07 → STU 22:46 → SMU 11-12 11:21
PROVIDERS: ADMIT Family Medicine; ATTEND Family Medicine
DX: L03.116 Cellulitis of left lower limb (principal); N17.0 Acute kidney failure with tubular necrosis; E44.0 Moderate protein-calorie malnutrition; I13.0 Hypertensive heart and chronic kidney disease with heart failure and stage 1 through stage 4 chronic kidney disease, or unspecified chronic kidney disease; L03.115 Cellulitis of right lower limb; G31.84 Mild cognitive impairment of uncertain or unknown etiology; N18.9 Chronic kidney disease, unspecified; E11.22 Type 2 diabetes mellitus with diabetic chronic kidney disease; D64.9 Anemia, unspecified; E78.5 Hyperlipidemia, unspecified; Z79.4 Long term (current) use of insulin; Z79.82 Long term (current) use of aspirin; Z79.899 Other long term (current) drug therapy; Z68.39 Body mass index [BMI] 39.0-39.9, adult; I50.9 Heart failure, unspecified
CPT/HCPCS: 36415; 71045; 72170-TC; 80048; 80053; 82009; 83605; 83735; 83880; 84484; 85025; 87040; 87081; 93005; 93970; 96365; 97110-GP; 97530-GP; 99285; G0378; J0295; J0696; J1650; J1815; J3370; J7050